=== PATIENT | female | born 1995 | race Two or more races ===

== ENCOUNTER 2019-04-03 20:32 | Emergency (ER) | payer OTHER ==
[2019-04-03] MEDS ORDERED: METOCLOPRAMIDE HCL 10 MG TABLET PO ONE (21:57)
--- NOTE | 2019-04-03 21:58 | ER Document Report ---
ED Medical Screen (RME) - General Chief Complaint: Vaginal Bleeding Stated Complaint: VAGINAL BLEEDING Time Seen by Provider: 04/03/19 21:56 - HPI Notes: 04/03/19 21:57 Patient is a G2, P1 approximate 7-week 24-year-old female who presents complaining of vaginal leading that is light and started today. She will have occasional nausea as well. No fever. I have treated and performed a rapid initial assessment of this patient. A comprehensive ED assessment and evaluation of the patient, analysis of test results and completion of medical decision making process will be conducted by additional ED providers. PHYSICAL EXAMINATION: GENERAL: Well-appearing, well-nourished and in no acute distress. A&Ox4. Answers questions appropriately. Physical Exam - Vital signs Vitals: Temp Pulse Resp BP Pulse Ox 98.1 F 51 L 18 109/68 98 04/03/19 20:47 04/03/19 20:47 04/03/19 20:47 04/03/19 20:47 04/03/19 20:47 Course - Vital Signs Vital signs: Temp Pulse Resp BP Pulse Ox 98.1 F 51 L 18 109/68 98 04/03/19 20:47 04/03/19 20:47 04/03/19 20:47 04/03/19 20:47 04/03/19 20:47
[2019-04-03 22:44] LABS: APPEARANCE,URINE CLEAR; BILIRUBIN,URINE NEGATIVE (NEGATIVE); COLOR,URINE STRAW; GLUCOSE, URINE NEGATIVE (NEGATIVE); KETONES,URINE NEGATIVE (NEGATIVE); PROTEIN,URINE NEGATIVE (NEGATIVE); URINE SPECIFIC GRAVITY 1.004; UROBILINOGEN,URINE NEGATIVE mg/dL (<2.0)
[2019-04-03 23:51] LABS: ABSOLUTE EOSINOPHILS # (AUTO) 0.1 10^3/uL (0.0-0.6); ABSOLUTE LYMPHOCYTES (AUTO) 2.3 10^3/uL (0.5-4.7); ABSOLUTE MONOCYTES (AUTO) 0.7 10^3/uL (0.1-1.4); ABSOLUTE NEUT (AUTO) 6.2 10^3/uL (1.7-8.2); BASOPHILS % (AUTO) 0.3 % (0-2); HEMATOCRIT 35.2 % (36.0-47.0); LYMPHOCYTES % (AUTO) 25.1 % (13-45); MEAN CORPUSCULAR HEMOGLOBIN 29.3 pg (27.0-33.4); MEAN CORPUSCULAR HGB CONC 34.1 g/dL (32.0-36.0); MEAN CORPUSCULAR VOLUME 86 fl (80-97); MONOCYTES % (AUTO) 7.3 % (3-13); PLATELET COUNT 234 10^3/uL (150-450); RED CELL DISTRIBUTION WIDTH 14.2 % (11.5-14.0); SEGMENTED NEUTROPHILS % (AUTO) 66.3 % (42-78); TOTAL CELLS COUNTED % (AUTO) 100 %; WHITE BLOOD COUNT 9.4 10^3/uL (4.0-10.5)
[2019-04-04 00:06] LABS: CHLAM PCR NOT DETECTED (NOT DETECT)
--- NOTE | 2019-04-04 00:16 | RADIOLOGY REPORT (SQ) ---
US PELVIS EXAM DATE: 04/03/2019 9:57 PM SALON COORDINATOR HISTORY: Early . Pelvic pain. COMPARISON: None. TECHNIQUE: Grayscale, color Doppler, and spectral Doppler ultrasound images of the pelvis were obtained. FINDINGS: There is a bicornuate uterus. There is an intrauterine gestational sac with a yolk sac and pole visualized. The crown-rump length measures 1 cm corresponding to 7 weeks 0 days of . The heart rate is 133 bpm. There is an adjacent subchorionic hematoma measuring approximately 2 cm. The left ovary was not visualized. The right ovary measures 2.8 cm and contains normal color Doppler blood flow. IMPRESSION: 1. Single live IUP with estimated gestational age 7 weeks 0 days. 2. Small adjacent subchorionic hemorrhage; attention on follow-up imaging is suggested. 3. Incidental note of bicornuate uterus.
[2019-04-04 00:32] LABS: BACTERIA (WET MOUNT) 3+ BACTERIA SEEN; EPITHELIALS (WET MOUNT) 3+ EPITHELIALS SEEN; RBCS (WET MOUNT) 2+ RBCS SEEN; T.VAGINALIS (WET MOUNT) NO TRICHOMONAS SEEN; WBCS (WET MOUNT) 3+ WBCS SEEN; YEAST (WET MOUNT) NO YEAST SEEN
[2019-04-04] MEDS ORDERED: LIDOCAINE 1% INJ-PF (10 MG/ML) 30 ML SDV NEB ONE (01:16)
[2019-04-04] MEDS ORDERED: AZITHROMYCIN 250 MG TABLET PO ONE (01:16)
[2019-04-04] MEDS ORDERED: CEFTRIAXONE INJ 250 MG VIAL IM ONE (01:16)
--- NOTE | 2019-04-04 01:19 | ER Document Report ---
ED GI/ - General Chief Complaint: Vaginal Bleeding Stated Complaint: VAGINAL BLEEDING Time Seen by Provider: 04/03/19 21:56 Notes: Patient is a 24-year-old female that comes to the emergency department for chief complaint of vaginal spotting. She states she is approximately 7 weeks by last menstrual period, G2, P1. She states she also has a small amount of vaginal discharge and she states she is concerned she might have been exposed to an STD from infidelity in her relationship. She denies fever/chills, nausea/vomiting, she states she only has mild cramping. She denies any surgeries or daily medications other than her vitamins. - Related Data Allergies/Adverse Reactions: No Known Allergies Allergy (Unverified 04/03/19 22:54) Home Medications: vitamins Past Medical History - General Information source: Patient Last Menstrual Period: 02/09/19 - Social History Smoking Status: Never Smoker Frequency of alcohol use: None Drug Abuse: None Lives with: Family Family History: Reviewed & Not Pertinent Patient has suicidal ideation: No Patient has homicidal ideation: No - Medical History Medical History: Negative Past Surgical History: Reports: Hx Oral Surgery - wisdom teeth - Immunizations Immunizations up to date: Yes Hx Diphtheria, Pertussis, Tetanus Vaccination: Yes Review of Systems - Review of Systems Constitutional: No symptoms reported EENT: No symptoms reported Cardiovascular: No symptoms reported Respiratory: No symptoms reported Gastrointestinal: See HPI Genitourinary: See HPI Female Genitourinary: See HPI Musculoskeletal: No symptoms reported Skin: No symptoms reported Hematologic/Lymphatic: No symptoms reported Neurological/Psychological: No symptoms reported Physical Exam - Vital signs Vitals: Temp Pulse Resp BP Pulse Ox 98.1 F 51 L 18 109/68 98 04/03/19 20:47 04/03/19 20:47 04/03/19 20:47 04/03/19 20:47 04/03/19 20:47 - Notes Notes: GENERAL: Alert, interacts well. No acute distress. HEAD: Normocephalic, atraumatic. EYES: Pupils equal, round, and reactive to light. Extraocular movements intact. ENT: Oral mucosa moist, tongue midline. Oropharynx unremarkable. Airway patent. NECK: Full range of motion. Supple. Trachea midline. LUNGS: Clear to auscultation bilaterally, no wheezes, rales, or rhonchi. No respiratory distress. HEART: Regular rate and rhythm. No murmur ABDOMEN: Minimal generalized lower abdominal tenderness, nonspecific, no gua rding. Upper abdomen completely benign. GENITOURINARY: External exam unremarkable, speculum exam showing small amount of bleeding, no overt discharge, no severe tenderness. Cervix appears closed. E xam performed with Zahira APARICIO at bedside. EXTREMITIES: Moves all 4 extremities spontaneously. No edema, normal radial and dorsalis pedis pulses bilaterally. No cyanosis. BACK: no cervical, thoracic, lumbar midline tenderness. No saddle anesthesia, normal distal neurovascular exam. Moves all extremities in full range of motion. NEUROLOGICAL: Alert and oriented x3. Normal speech. Cranial nerves II through XII grossly intact. PSYCH: Normal affect, normal mood. SKIN: Warm, dry, normal turgor. No rashes or lesions noted. Course - Re-evaluation Re-evalutation: Patient well-appearing, vital signs unremarkable, only minimal tenderness in the general pelvic region on exam. CBC unremarkable, hCG elevated appropriately, urinalysis nonspecific. Pelvic exam shows closed cervix with small amount of bleeding but no heavy bleeding or discharge, no significant tenderness. Wet mount showing 3+ bacteria and 3+ white blood cells but there is no evidence of bacterial vaginosis on exam. Because of patient's cramping and reported discha rge previously she will be treated for pelvic infection with Rocephin and azithromycin but after discussion Flagyl was deferred because she has no evidence of bacterial vaginosis on exam and trichomonas is negative. Gonorrhea and Chlamydia negative. Ultrasound showing small subchronic hemorrhage, living intrauterine with no further complications noted. RhoGam is not indicated. I discussed details with patient at length, discussed expectations, follow-up, and return precautions. She states appreciation and agreement. Stable at time of discharge. - Vital Signs Vital signs: Temp Pulse Resp BP Pulse Ox 98.0 F 58 L 16 116/63 99 04/04/19 01:37 04/04/19 01:37 04/04/19 01:37 04/04/19 01:37 04/04/19 01:37 - Laboratory Result Diagrams: 04/03/19 22:05 Laboratory results interpreted by me: 04/03/19 04/03/19 04/03/19 22:05 22:05 22:05 Hct 35.2 L RDW 14.2 H Beta HCG, Quant 90602.00 H Urine Blood MODERATE H Discharge - Discharge Clinical Impression: Vaginal bleeding affecting early , Vaginal discharge Condition: Stable Disposition: HOME, SELF-CARE Additional Instructions: Your work-up shows a living in the uterus at 7 weeks. You also have a small subchorionic bleed as we discussed, please perform pelvic precautions (avoid intense exercise, sexual intercourse, etc) as symptoms are resolving and cleared by NEON MOLDER. Follow-up with NEON MOLDER for additional management. You have been treated for a developing pelvic infection but no STDs were found. Take Reglan if needed for nausea. Return for any concerning symptoms including vomiting, fever, severe worsening pain, heavy bleeding, dizziness, passing out, or any other concerning symptoms. Prescriptions: Metoclopramide HCl [Reglan] 5 mg PO ASDIR PRN #30 tablet PRN Reason:
[2019-04-04 01:38] VITALS: BP 116/63
== END 2019-04-04 01:38 | disposition home or self-care (01) ==
LOC: ER 20:32
DX: O20.8 Other hemorrhage in early pregnancy (principal); O23.591 Infection of other part of genital tract in pregnancy, first trimester; O26.891 Other specified pregnancy related conditions, first trimester; R25.2 Cramp and spasm; Z20.2 Contact with and (suspected) exposure to infections with a predominantly sexual mode of transmission; Z3A.01 Less than 8 weeks gestation of pregnancy
CPT/HCPCS: 94640; 99284; 96372; 86900; 86901; 36415; 87210; 84702; 85025; 81001; 87491; 87591; 76817; J3490; J0696